=== PATIENT | male | born 1945 | race Caucasian/White ===

== ENCOUNTER 2019-10-21 08:27 | Inpatient (IN) ==
[2019-10-21] MEDS: 0.9 % Sodium Chloride 1,000 ML IVC SCH ×2 (09:21→22:33)
[2019-10-21] MEDS ORDERED: ISOVUE-370 200 ML INFUS..BTL ONE (09:31)
[2019-10-21] MEDS ORDERED: Nitroglycerin 1,000 MCG/10 ML VIAL IV ONE (09:31)
[2019-10-21] MEDS ORDERED: 0.9 % Sodium Chloride 1,000 ML ONE (09:31)
[2019-10-21] MEDS ORDERED: *HR* Heparin 10,000 UNIT/10 ML VIAL ONE (09:31)
[2019-10-21] MEDS ORDERED: Heparin 1,000 UNITS/500 mL 500 ML ONE (09:31)
[2019-10-21] MEDS ORDERED: *HR* Midazolam HCl 2 MG/2 ML VIAL ONE (09:46)
[2019-10-21] MEDS ORDERED: Acetaminophen 325 MG TABLET PO PRN (10:21)
[2019-10-21] MEDS ORDERED: Aspirin Enteric Coated 81 MG Tablet PO SCH (12:15)
[2019-10-21] MEDS ORDERED: Finasteride 5 MG TABLET PO SCH (12:15)
[2019-10-21] MEDS: Lurasidone 20 MG TABLET PO SCH (14:53)
[2019-10-21] MEDS ORDERED: CeFAZolin Syr 2,000MG/20 ML 2,000 MG/20 ML SYRINGE IVPB ONE (16:27)
[2019-10-21] MEDS ORDERED: Perflutren Lipid Microsphere 1.3 ML in 0.9 % Sodium Chloride 8.7 ML IVP ONE (16:32)
[2019-10-21] MEDS: Budesonide/Formoterol 160/4.5 1 PUFF INH IH SCH ×2 (16:45→19:47)
[2019-10-21 17:16] LABS: Basophils # 0.1 K/mcL (0.0-0.2); Basophils % 1.1 %; Eosinophils # 1.2 K/mcL (0.0-0.6); Eosinophils % 15.3 %; Hematocrit 40.6 % (37.5-50.1); Hemoglobin 13.9 g/dL (12.9-16.9); Immature Granulocytes % 0.3 % (0-4); Lymphocytes # 2.3 K/mcL (0.6-4.6); Mean Corpuscular HGB Conc 34.2 g/dL (31.6-35.5); Mean Corpuscular Hemoglobin 32.9 pg (28.0-33.3); Mean Corpuscular Volume 96.2 fL (83.0-100.0); Mean Platelet Volume 9.6 fL (9.4-12.4); Monocytes # 0.5 K/mcL (0.0-1.3); Monocytes % 6.5 %; Neutrophils # 3.8 K/mcL (1.6-8.9); Platelet Count 220 K/mcL (140-400); Red Blood Count 4.22 M/mcL (4.19-5.50); Red Cell Distribution Width 12.5 % (11.5-14.5); Segmented Neutrophils % 47.8 %; White Blood Count 7.9 K/mcL (4.3-11.1)
[2019-10-21 17:17] LABS: INR 1.1; Prothrombin Time 12.1 Seconds (9.4-12.1)
[2019-10-21 17:19] LABS: Estimated Average Glucose 108 mg/dl
[2019-10-21 17:26] LABS: BUN/Creatinine Ratio 14 (6-26); Blood Urea Nitrogen 18 mg/dL (8-23); Calcium 9.1 mg/dL (8.6-10.3); Carbon Dioxide 27 mEq/L (23-29); Chloride 111 mEq/L (98-107); Chol/HDL Ratio 7.1 (0-4.9); Cholesterol 198 mg/dL (< 200); Glucose 95 mg/dL (70-105); HDL Cholesterol 28 mg/dL (40-59); LDL Cholesterol,Calculated 121 mg/dL (0-99); Osmolality,Calculated 288 (280-300); Potassium 4.5 mEq/L (3.5-5.1); Sodium 138 mEq/L (136-145); Triglycerides 247 mg/dL (< 150); eGFR For African Americans > 60 (> 60); eGFR For Non-African Americans 54 (> 60)
[2019-10-21] MEDS: OXcarbazepine 150 MG TABLET PO SCH (22:32)
[2019-10-21] MEDS: Isosorbide MONOnitrate (24 HR) 30 MG TAB.ER.24H PO SCH (22:32)
[2019-10-21] MEDS: Finasteride 5 MG TABLET PO SCH (22:32)
[2019-10-21] MEDS: Chlorhexidine Rinse 15 ML MOUTHWASH MM SCH (22:33)
[2019-10-22 00:37] LABS: Bilirubin,Urine Negative (Negative); Blood,Urine Small (Negative); Clarity,Urine Clear (Clear); Color,Urine Yellow (Yellow); Glucose,Urine (UA) Normal (Normal); Ketones,Urine Negative (Negative); Leukocyte Esterase,Urine Negative (Negative); Nitrite,Urine Negative (Negative); Protein,Urine Negative (Neg-Trace); Specific Gravity,Urine 1.022 (1.010-1.025); Urobilinogen,Urine Normal (Normal)
[2019-10-22 00:44] LABS: Bacteria,Urine None Seen per hpf (None-Few); Hyaline Casts,Urine None Seen per lpf (None-Few); Squamous Epithelial Cell,Urine None Seen per lpf (None-Few); WBC,Urine 0-3 per hpf (0-3)
[2019-10-22] MEDS: Chlorhexidine Rinse 15 ML MOUTHWASH MM SCH (05:38)
[2019-10-22] MEDS ORDERED: Heparin 15,000 UNIT in 0.9 % Sodium Chloride 500 ML IV ONE (06:00)
[2019-10-22] MEDS ORDERED: Norepinephrine 4 MG in 0.9 % Sodium Chloride 250 ML IVC PRN (06:00)
[2019-10-22] MEDS ORDERED: Aspirin 81 MG TAB.CHEW PO ONE (06:00)
[2019-10-22] MEDS ORDERED: Dextrose 50 % in Water (Vial) 30 ML, Sodium Bicarbonate 20 MEQ, Potassium Chloride 15 M... TH ONE (06:00)
[2019-10-22] MEDS ORDERED: Insulin Human Regular 100 UNIT in 0.9 % Sodium Chloride 100 ML IV PRN (06:00)
[2019-10-22] MEDS ORDERED: Dextrose 50 % in Water (Vial) 30 ML, Sodium Bicarbonate 20 MEQ, Lidocaine 1% 5 ML, Insu... TH ONE ×3 (06:00)
[2019-10-22] MEDS ORDERED: CeFAZolin Syr 2,000MG/20 ML 2,000 MG/20 ML SYRINGE IVPB ONE (06:00)
[2019-10-22] MEDS ORDERED: NiCARdipine 2.5 MG/10 ML Syringe IVPB ONE (06:58)
[2019-10-22] MEDS ORDERED: *HR* Midazolam HCl 5 MG/5 ML VIAL IVP ONE (07:04)
[2019-10-22] MEDS ORDERED: *HR* FentaNYL (PF) 1,000 MCG/20 ML VIAL ONE (07:05)
[2019-10-22] MEDS ORDERED: *HR* Rocuronium Bromide 50 MG/5 ML VIAL ONE (07:06)
[2019-10-22] MEDS ORDERED: *HR* PHENYLEPHRINE 1,000 MCG/10 ML SYRINGE IVP ONE ×3 (07:06→10:48)
[2019-10-22] MEDS ORDERED: *HR* Etomidate 20 MG/10 ML AMPUL IVP ONE (07:10)
[2019-10-22] MEDS ORDERED: Famotidine 20 MG/2 ML VIAL ONE (07:10)
[2019-10-22] MEDS ORDERED: Tranexamic Acid 1,000 MG/10 ML VIAL ONE ×2 (07:11→10:14)
[2019-10-22] MEDS ORDERED: Protamine Sulfate 250 MG/25 ML VIAL IVP ONE (07:11)
[2019-10-22] MEDS ORDERED: Calcium Gluconate 1,000 MG/10 ML VIAL ONE (07:11)
[2019-10-22] MEDS ORDERED: Albumin Human 5% 50.0 GM/1,000 ML IV.SOLN ONE (08:09)
[2019-10-22 08:16] LABS: ABG Base Excess -2 mEq/L (-2 to 3); ABG Chloride 107 mEq/L (98-107); ABG Glucose 94 mg/dL (60-95); ABG HCO3 26 mEq/L (21-27); ABG Ionized Calcium 1.32 mmol/L (1.15-1.35); ABG Oxygen Saturation 99 % (95-98); ABG PCO2 58 mmHg (35-45); ABG PH 7.26 pH Units (7.32-7.45); ABG PO2 146 mmHg (85-104); ABG TCO2 27 mEq/L (20-26)
[2019-10-22] MEDS ORDERED: Aspirin 81 MG TAB.CHEW PO SCH (09:00)
[2019-10-22] MEDS ORDERED: EPINEPHrine 1 MG/ML VIAL ONE (09:15)
[2019-10-22 09:27] LABS: ABG Base Excess -4 mEq/L (-2 to 3); ABG Chloride 108 mEq/L (98-107); ABG Glucose 117 mg/dL (60-95); ABG HCO3 22 mEq/L (21-27); ABG Ionized Calcium 1.13 mmol/L (1.15-1.35); ABG Oxygen Saturation 100 % (95-98); ABG PCO2 43 mmHg (35-45); ABG PH 7.33 pH Units (7.32-7.45); ABG PO2 185 mmHg (85-104); ABG TCO2 24 mEq/L (20-26)
[2019-10-22] MEDS ORDERED: EPINEPHrine 1 MG in D5% in Water 250 ML IVC ONE (09:30)
[2019-10-22 09:48] LABS: ABG Base Excess 2 mEq/L (-2 to 3); ABG Chloride 98 mEq/L (98-107); ABG Glucose 181 mg/dL (60-95); ABG HCO3 27 mEq/L (21-27); ABG Ionized Calcium 0.96 mmol/L (1.15-1.35); ABG PCO2 43 mmHg (35-45); ABG PH 7.41 pH Units (7.32-7.45); ABG PO2 > 630 mmHg (85-104); ABG TCO2 28 mEq/L (20-26)
[2019-10-22 10:16] LABS: ABG Base Excess 2 mEq/L (-2 to 3); ABG Chloride 100 mEq/L (98-107); ABG Glucose 103 mg/dL (60-95); ABG HCO3 26 mEq/L (21-27); ABG Ionized Calcium 1.31 mmol/L (1.15-1.35); ABG Oxygen Saturation 100 % (95-98); ABG PCO2 40 mmHg (35-45); ABG PH 7.43 pH Units (7.32-7.45); ABG PO2 560 mmHg (85-104); ABG TCO2 28 mEq/L (20-26)
[2019-10-22] MEDS ORDERED: Albumin Human 5% 12.5 GM/250 ML IV.SOLN ONE (10:16)
[2019-10-22] MEDS ORDERED: Albumin Human 5% 25.0 GM/500 ML IV.SOLN ONE (10:35)
[2019-10-22] MEDS ORDERED: *HR* Amiodarone 150 MG/3 ML VIAL IVPB ONE (10:40)
[2019-10-22] MEDS ORDERED: Amiodarone Premix 360 MG/200 ML BAG IVC ONE (10:41)
[2019-10-22 11:14] LABS: ABG Base Excess -4 mEq/L (-2 to 3); ABG Chloride 108 mEq/L (98-107); ABG Glucose 80 mg/dL (60-95); ABG HCO3 23 mEq/L (21-27); ABG Ionized Calcium 1.22 mmol/L (1.15-1.35); ABG Oxygen Saturation 96 % (95-98); ABG PCO2 47 mmHg (35-45); ABG PO2 92 mmHg (85-104); ABG TCO2 24 mEq/L (20-26)
[2019-10-22] MEDS: Amiodarone Premix 360 MG/200 ML BAG IVC ONE ×2 (11:37→16:32)
[2019-10-22] MEDS ORDERED: Ondansetron 4 MG/2 ML VIAL IVP PRN (11:54)
[2019-10-22] MEDS ORDERED: Naloxone 0.4 MG/ML INJ IVP PRN (11:54)
[2019-10-22] MEDS ORDERED: Calcium Gluconate 1gm/50mL 1 GM/50 ML BAG IVPB PRN (11:54)
[2019-10-22] MEDS ORDERED: Insulin Regular, Human 100 UNIT/ML IV PRN (11:54)
[2019-10-22] MEDS ORDERED: *HR* Dextrose 50 % in Water (Syg) 50 ML SYRINGE IVP PRN (11:54)
[2019-10-22] MEDS ORDERED: Acetaminophen 650 MG RECTAL SUPP RC PRN (11:54)
[2019-10-22] MEDS ORDERED: Potassium Chloride 40 MEQ/200 ML BAG IVPB PRN (11:54)
[2019-10-22] MEDS ORDERED: 0.9 % Sodium Chloride w KCl 20 MEQ/1,000 ML MLS IVC SCH (12:00)
[2019-10-22] MEDS ORDERED: Norepinephrine 4 MG in 0.9 % Sodium Chloride 250 ML IVC SCH (12:00)
[2019-10-22] MEDS ORDERED: niCARdipine 20 MG in 0.9 % Sodium Chloride 192 ML IVC SCH (12:00)
[2019-10-22] MEDS ORDERED: Insulin Human Regular 100 UNIT in 0.9 % Sodium Chloride 100 ML IVC SCH (12:00)
[2019-10-22] MEDS ORDERED: Pantoprazole 40 MG VIAL IVP SCH (12:00)
[2019-10-22 12:03] LABS: ABG Base Excess -1 mEq/L (-2 to 3); ABG HCO3 23 mEq/L (21-27); ABG Oxygen Saturation 100 % (95-98); ABG PCO2 37 mmHg (35-45); ABG PH 7.41 pH Units (7.32-7.45); ABG PO2 173 mmHg (85-104); ABG TCO2 25 mEq/L (20-26); Blood Gas Modality ASSIST CONTROL; Blood Gas VT 550 cc
[2019-10-22] MEDS: Albumin Human 5% 12.5 GM/250 ML IV.SOLN IVPB PRN ×2 (12:05→17:05)
[2019-10-22] MEDS: Budesonide/Formoterol 160/4.5 1 PUFF INH IH SCH ×2 (12:05→20:41)
[2019-10-22 12:11] LABS: Basophils % 0.3 %; Immature Granulocytes % 0.6 % (0-4); Lymphocytes % 11.4 %; Red Cell Distribution Width 13.2 % (11.5-14.5)
[2019-10-22 12:13] LABS: Eosinophils # 0.4 K/mcL (0.0-0.6); Eosinophils % 3.9 %; Hematocrit 35.7 % (37.5-50.1); Hemoglobin 12.2 g/dL (12.9-16.9); Immature Platelets 2.6 % (1.1-6.1); Lymphocytes # 1.2 K/mcL (0.6-4.6); Mean Corpuscular HGB Conc 34.2 g/dL (31.6-35.5); Mean Corpuscular Hemoglobin 31.9 pg (28.0-33.3); Mean Corpuscular Volume 93.5 fL (83.0-100.0); Mean Platelet Volume 9.4 fL (9.4-12.4); Monocytes # 0.5 K/mcL (0.0-1.3); Monocytes % 4.6 %; Neutrophils # 8.6 K/mcL (1.6-8.9); Platelet Count 141 K/mcL (140-400); Red Blood Count 3.82 M/mcL (4.19-5.50); Segmented Neutrophils % 79.2 %
[2019-10-22 12:18] LABS: INR 1.4
[2019-10-22 12:20] LABS: Activated Partial Thrombo Time 33.5 Seconds (26.0-36.0)
[2019-10-22 12:24] LABS: Prothrombin Time 15.5 Seconds (9.4-12.1); White Blood Count 10.9 K/mcL (4.3-11.1)
[2019-10-22 12:26] LABS: BUN/Creatinine Ratio 13 (6-26); Blood Urea Nitrogen 15 mg/dL (8-23); Calcium 8.7 mg/dL (8.6-10.3); Carbon Dioxide 23 mEq/L (23-29); Chloride 111 mEq/L (98-107); Glucose 76 mg/dL (70-105); Magnesium 2.6 mg/dL (1.6-2.6); Osmolality,Calculated 284 (280-300); Potassium 4.1 mEq/L (3.5-5.1); Sodium 137 mEq/L (136-145); eGFR For African Americans > 60 (> 60); eGFR For Non-African Americans > 60 (> 60)
[2019-10-22] MEDS: OXcarbazepine 150 MG TABLET PO SCH ×2 (13:35→19:58)
[2019-10-22] MEDS: Lurasidone 20 MG TABLET PO SCH (13:35)
[2019-10-22] MEDS: *HR* FentaNYL (PF) 100 MCG/2 ML VIAL IVP PRN ×3 (13:41→21:55)
[2019-10-22] MEDS: Metoclopramide 10 MG/2 ML VIAL IVP SCH ×3 (13:42→23:43)
[2019-10-22] MEDS ORDERED: Tranexamic Acid 1,000 MG/10 ML VIAL IVP ONE (13:52)
[2019-10-22] MEDS ORDERED: *HR* Magnesium Sulfate 2 GM/50 ML PIGGYBACK IVPB ONE (13:52)
[2019-10-22] MEDS ORDERED: Albumin Human 25% 25 GM/100 ML IV.SOLN IV ONE (13:52)
[2019-10-22] MEDS ORDERED: Lidocaine 2% Syringe 100 MG/5 ML IV ONE (13:52)
[2019-10-22] MEDS ORDERED: Mannitol 25% vial 12.5 GM/50 ML VIAL IVP ONE (13:52)
[2019-10-22] MEDS ORDERED: *HR* Phenylephrine 10 MG/ML VIAL IVC ONE (13:52)
[2019-10-22] MEDS ORDERED: *HR* Heparin 10,000 UNIT/10 ML VIAL IV ONE (13:52)
[2019-10-22] MEDS: ceFAZolin 2,000 MG in 0.9 % Sodium Chloride 100 ML IVPB SCH ×2 (15:15→23:43)
[2019-10-22 16:46] LABS: ABG Base Excess -2 mEq/L (-2 to 3); ABG HCO3 23 mEq/L (21-27); ABG Oxygen Saturation 93 % (95-98); ABG PCO2 40 mmHg (35-45); ABG PH 7.37 pH Units (7.32-7.45); ABG PO2 70 mmHg (85-104); ABG TCO2 24 mEq/L (20-26); Blood Gas Modality CPAP/PS; Blood Gas Pressure Support 8 cm H2O
[2019-10-22] MEDS: Isosorbide MONOnitrate (24 HR) 30 MG TAB.ER.24H PO SCH (19:55)
[2019-10-22] MEDS: Finasteride 5 MG TABLET PO SCH (19:56)
[2019-10-22 20:54] LABS: ABG Base Excess -2 mEq/L (-2 to 3); ABG HCO3 23 mEq/L (21-27); ABG Oxygen Saturation 87 % (95-98); ABG PCO2 38 mmHg (35-45); ABG PH 7.39 pH Units (7.32-7.45); ABG PO2 54 mmHg (85-104); ABG TCO2 24 mEq/L (20-26)
[2019-10-22] MEDS ORDERED: Chlorhexidine Rinse 15 ML MOUTHWASH MM SCH (21:00)
[2019-10-22] MEDS ORDERED: Amiodarone Premix 360 MG/200 ML BAG IVC SCH (22:00)
[2019-10-22] MEDS: *HR* OxyCODONE/APAP 5/325 TABLET PO PRN (23:43)
[2019-10-23] MEDS: *HR* FentaNYL (PF) 100 MCG/2 ML VIAL IVP PRN (02:17)
[2019-10-23] MEDS: *HR* OxyCODONE/APAP 5/325 TABLET PO PRN ×2 (03:47→19:31)
[2019-10-23 04:10] LABS: Basophils # 0.1 K/mcL (0.0-0.2); Basophils % 0.6 %; Eosinophils # 0.1 K/mcL (0.0-0.6); Eosinophils % 0.9 %; Hematocrit 34.5 % (37.5-50.1); Hemoglobin 11.9 g/dL (12.9-16.9); Immature Granulocytes % 0.4 % (0-4); Lymphocytes # 0.9 K/mcL (0.6-4.6); Lymphocytes % 9.6 %; Mean Corpuscular HGB Conc 34.5 g/dL (31.6-35.5); Mean Corpuscular Hemoglobin 32.1 pg (28.0-33.3); Mean Platelet Volume 10.1 fL (9.4-12.4); Monocytes # 0.8 K/mcL (0.0-1.3); Monocytes % 8.8 %; Neutrophils # 7.2 K/mcL (1.6-8.9); Platelet Count 123 K/mcL (140-400); Red Blood Count 3.71 M/mcL (4.19-5.50); Red Cell Distribution Width 13.7 % (11.5-14.5); Segmented Neutrophils % 79.7 %
[2019-10-23 04:12] LABS: INR 1.2; Prothrombin Time 13.6 Seconds (9.4-12.1)
[2019-10-23 04:14] LABS: Activated Partial Thrombo Time 31.6 Seconds (26.0-36.0)
[2019-10-23 04:28] LABS: BUN/Creatinine Ratio 10 (6-26); Blood Urea Nitrogen 14 mg/dL (8-23); Calcium 8.5 mg/dL (8.6-10.3); Carbon Dioxide 21 mEq/L (23-29); Chloride 111 mEq/L (98-107); Glucose 133 mg/dL (70-105); Magnesium 1.9 mg/dL (1.6-2.6); Osmolality,Calculated 288 (280-300); Potassium 4.3 mEq/L (3.5-5.1); Sodium 138 mEq/L (136-145); eGFR For African Americans > 60 (> 60); eGFR For Non-African Americans 50 (> 60)
[2019-10-23] MEDS: Metoclopramide 10 MG/2 ML VIAL IVP SCH ×3 (05:13→17:17)
[2019-10-23] MEDS ORDERED: Amiodarone Premix 360 MG/200 ML BAG IVC SCH (06:38)
[2019-10-23] MEDS ORDERED: Insulin Regular, Human 100 UNIT/ML IV PRN (06:38)
[2019-10-23] MEDS ORDERED: Ipratropium/Albuterol Neb 3 ML IH PRN (06:38)
[2019-10-23] MEDS ORDERED: Dextrose Gel 15 GM/37.5 ML TUBE PO PRN ×2 (06:38)
[2019-10-23] MEDS ORDERED: D5% in Water 1,000 ML IVC PRN (06:38)
[2019-10-23] MEDS ORDERED: Naloxone 0.4 MG/ML INJ IVP PRN (06:38)
[2019-10-23] MEDS ORDERED: *HR* FentaNYL (PF) 100 MCG/2 ML VIAL IVP PRN (06:38)
[2019-10-23] MEDS ORDERED: Ondansetron 4 MG/2 ML VIAL IVP PRN (06:38)
[2019-10-23] MEDS ORDERED: Primidone 50 MG TABLET PO PRN (06:38)
[2019-10-23] MEDS ORDERED: Insulin Human Regular 100 UNIT in 0.9 % Sodium Chloride 100 ML IVC SCH (06:38)
[2019-10-23] MEDS ORDERED: *HR* Dextrose 50 % in Water (Syg) 50 ML SYRINGE IVP PRN (06:38)
[2019-10-23] MEDS: Budesonide/Formoterol 160/4.5 1 PUFF INH IH SCH ×2 (07:18→20:04)
[2019-10-23] MEDS ORDERED: Pantoprazole 40 MG VIAL ONE (08:00)
[2019-10-23] MEDS ORDERED: Chlorhexidine Rinse 15 ML MOUTHWASH ONE (08:00)
[2019-10-23] MEDS ORDERED: Metoclopramide 10 MG/2 ML VIAL ONE (08:00)
[2019-10-23] MEDS ORDERED: Lurasidone 20 MG TABLET PO ONE (08:00)
[2019-10-23] MEDS ORDERED: Cholecalciferol (D-3) 1,000 UNIT (25MCG) TABLET PO ONE (08:00)
[2019-10-23] MEDS ORDERED: Aspirin Enteric Coated 81 MG Tablet PO ONE (08:00)
[2019-10-23] MEDS ORDERED: OXcarbazepine 150 MG TABLET PO ONE (08:00)
[2019-10-23] MEDS ORDERED: *HR* Amiodarone Premix 360 MG/200 ML BAG IVC ONE (08:00)
[2019-10-23] MEDS ORDERED: Furosemide 20 MG/2 ML VIAL IVP ONE (08:00)
[2019-10-23] MEDS ORDERED: Furosemide 20 MG/2 ML VIAL IVP SCH (09:00)
[2019-10-23] MEDS ORDERED: Aspirin Enteric Coated 81 MG Tablet PO SCH (09:00)
[2019-10-23] MEDS: Insulin LISPRO 300 UNITS/3 ML VIAL SQ SCH ×4 (16:51→20:12)
[2019-10-23] MEDS: *HR* Heparin 5,000 UNIT/ML VIAL SQ SCH ×2 (17:17→19:47)
[2019-10-23] MEDS: Aspirin Enteric Coated 81 MG Tablet PO SCH (19:47)
[2019-10-23] MEDS: Chlorhexidine Rinse 15 ML MOUTHWASH MM SCH ×2 (19:47→20:11)
[2019-10-23] MEDS: Pantoprazole 40 MG VIAL IVP SCH (19:48)
[2019-10-23] MEDS: Lurasidone 20 MG TABLET PO SCH (19:48)
[2019-10-23] MEDS: Furosemide 20 MG/2 ML VIAL IVP SCH ×2 (19:48→20:11)
[2019-10-23] MEDS: OXcarbazepine 150 MG TABLET PO SCH ×2 (19:49→20:10)
[2019-10-23] MEDS: Cholecalciferol (D-3) 1,000 UNIT (25MCG) TABLET PO SCH (19:49)
[2019-10-23] MEDS: Finasteride 5 MG TABLET PO SCH (20:10)
[2019-10-24] MEDS: Metoclopramide 10 MG/2 ML VIAL IVP SCH ×5 (00:02→23:23)
[2019-10-24] MEDS: *HR* OxyCODONE/APAP 5/325 TABLET PO PRN ×3 (04:26→17:48)
[2019-10-24] MEDS: *HR* Heparin 5,000 UNIT/ML VIAL SQ SCH ×2 (05:24→17:49)
[2019-10-24] MEDS: Budesonide/Formoterol 160/4.5 1 PUFF INH IH SCH ×2 (07:51→20:18)
[2019-10-24] MEDS: Insulin LISPRO 300 UNITS/3 ML VIAL SQ SCH ×4 (07:55→20:43)
[2019-10-24] MEDS: Pantoprazole 40 MG VIAL IVP SCH (07:59)
[2019-10-24] MEDS: OXcarbazepine 150 MG TABLET PO SCH ×2 (08:00→20:42)
[2019-10-24] MEDS: Aspirin Enteric Coated 81 MG Tablet PO SCH (08:00)
[2019-10-24] MEDS: Cholecalciferol (D-3) 1,000 UNIT (25MCG) TABLET PO SCH (08:01)
[2019-10-24] MEDS: Lurasidone 20 MG TABLET PO SCH (08:01)
[2019-10-24] MEDS: Chlorhexidine Rinse 15 ML MOUTHWASH MM SCH ×2 (08:02→20:43)
[2019-10-24] MEDS: Furosemide 20 MG/2 ML VIAL IVP SCH ×2 (08:02→20:43)
[2019-10-24] MEDS: *HR* Amiodarone 200 MG TABLET PO SCH (10:39)
[2019-10-24 19:35] LABS: BUN/Creatinine Ratio 15 (6-26); Blood Urea Nitrogen 19 mg/dL (8-23); Calcium 8.3 mg/dL (8.6-10.3); Carbon Dioxide 26 mEq/L (23-29); Chloride 104 mEq/L (98-107); Glucose 99 mg/dL (70-105); Osmolality,Calculated 276 (280-300); Sodium 132 mEq/L (136-145); eGFR For African Americans > 60 (> 60); eGFR For Non-African Americans 56 (> 60)
[2019-10-24] MEDS: Famotidine 20 MG TABLET PO SCH (20:43)
[2019-10-24] MEDS: Finasteride 5 MG TABLET PO SCH (20:43)
[2019-10-25] MEDS: *HR* Heparin 5,000 UNIT/ML VIAL SQ SCH ×2 (05:06→17:34)
[2019-10-25] MEDS: Metoclopramide 10 MG/2 ML VIAL IVP SCH ×2 (05:06→11:48)
[2019-10-25] MEDS: Insulin LISPRO 300 UNITS/3 ML VIAL SQ SCH ×4 (07:17→20:37)
[2019-10-25] MEDS: Furosemide 20 MG/2 ML VIAL IVP SCH ×2 (07:47→20:37)
[2019-10-25] MEDS: Chlorhexidine Rinse 15 ML MOUTHWASH MM SCH ×2 (07:48→20:37)
[2019-10-25] MEDS: Aspirin Enteric Coated 81 MG Tablet PO SCH (07:48)
[2019-10-25] MEDS: Famotidine 20 MG TABLET PO SCH ×2 (07:48→20:37)
[2019-10-25] MEDS: Cholecalciferol (D-3) 1,000 UNIT (25MCG) TABLET PO SCH (07:49)
[2019-10-25] MEDS: Lurasidone 20 MG TABLET PO SCH (07:49)
[2019-10-25] MEDS: OXcarbazepine 150 MG TABLET PO SCH ×2 (07:49→20:50)
[2019-10-25] MEDS: *HR* Amiodarone 200 MG TABLET PO SCH (07:49)
[2019-10-25] MEDS: Budesonide/Formoterol 160/4.5 1 PUFF INH IH SCH ×2 (07:57→19:37)
[2019-10-25] MEDS ORDERED: *HR* Amiodarone 200 MG TABLET PO SCH (09:00)
[2019-10-25 10:02] LABS: Basophils # 0.1 K/mcL (0.0-0.2); Basophils % 0.6 %; Eosinophils # 0.5 K/mcL (0.0-0.6); Eosinophils % 4.3 %; Hematocrit 38.8 % (37.5-50.1); Hemoglobin 13.2 g/dL (12.9-16.9); Immature Granulocytes % 0.4 % (0-4); Lymphocytes # 0.9 K/mcL (0.6-4.6); Lymphocytes % 8.2 %; Mean Corpuscular Hemoglobin 31.9 pg (28.0-33.3); Mean Corpuscular Volume 93.7 fL (83.0-100.0); Mean Platelet Volume 10.3 fL (9.4-12.4); Monocytes # 0.8 K/mcL (0.0-1.3); Monocytes % 7.6 %; Neutrophils # 8.4 K/mcL (1.6-8.9); Platelet Count 153 K/mcL (140-400); Red Blood Count 4.14 M/mcL (4.19-5.50); Red Cell Distribution Width 13.6 % (11.5-14.5); Segmented Neutrophils % 78.9 %; White Blood Count 10.6 K/mcL (4.3-11.1)
[2019-10-25 10:59] LABS: BUN/Creatinine Ratio 17 (6-26); Blood Urea Nitrogen 22 mg/dL (8-23); Calcium 8.5 mg/dL (8.6-10.3); Carbon Dioxide 26 mEq/L (23-29); Chloride 103 mEq/L (98-107); Glucose 131 mg/dL (70-105); Osmolality,Calculated 287 (280-300); Potassium 3.4 mEq/L (3.5-5.1); Sodium 136 mEq/L (136-145); eGFR For African Americans > 60 (> 60); eGFR For Non-African Americans 54 (> 60)
[2019-10-25] MEDS: *HR* OxyCODONE/APAP 5/325 TABLET PO PRN (17:34)
[2019-10-25 19:19] LABS: Hematocrit 36.5 % (37.5-50.1); Hemoglobin 12.7 g/dL (12.9-16.9); Mean Corpuscular HGB Conc 34.8 g/dL (31.6-35.5); Mean Corpuscular Hemoglobin 32.6 pg (28.0-33.3); Mean Corpuscular Volume 93.8 fL (83.0-100.0); Mean Platelet Volume 10.6 fL (9.4-12.4); Platelet Count 143 K/mcL (140-400); Red Blood Count 3.89 M/mcL (4.19-5.50); Red Cell Distribution Width 13.4 % (11.5-14.5); White Blood Count 9.8 K/mcL (4.3-11.1)
[2019-10-25] MEDS: Finasteride 5 MG TABLET PO SCH (20:37)
[2019-10-26] MEDS: *HR* Heparin 5,000 UNIT/ML VIAL SQ SCH ×2 (05:00→17:43)
[2019-10-26] MEDS: Insulin LISPRO 300 UNITS/3 ML VIAL SQ SCH ×4 (07:26→20:36)
[2019-10-26] MEDS: Budesonide/Formoterol 160/4.5 1 PUFF INH IH SCH ×2 (08:01→20:14)
[2019-10-26] MEDS: *HR* Amiodarone 200 MG TABLET PO SCH (08:40)
[2019-10-26] MEDS: Aspirin Enteric Coated 81 MG Tablet PO SCH (08:40)
[2019-10-26] MEDS: Lurasidone 20 MG TABLET PO SCH (08:40)
[2019-10-26] MEDS: Famotidine 20 MG TABLET PO SCH ×2 (08:40→20:36)
[2019-10-26] MEDS: Chlorhexidine Rinse 15 ML MOUTHWASH MM SCH ×2 (08:41→20:36)
[2019-10-26] MEDS: Cholecalciferol (D-3) 1,000 UNIT (25MCG) TABLET PO SCH (08:41)
[2019-10-26] MEDS: OXcarbazepine 150 MG TABLET PO SCH ×2 (10:48→20:35)
[2019-10-26] MEDS: Finasteride 5 MG TABLET PO SCH (20:36)
[2019-10-26] MEDS: Acetaminophen 325 MG TABLET PO PRN (23:08)
[2019-10-27] MEDS: *HR* Heparin 5,000 UNIT/ML VIAL SQ SCH ×2 (05:17→17:56)
[2019-10-27] MEDS: Acetaminophen 325 MG TABLET PO PRN ×2 (05:17→20:26)
[2019-10-27] MEDS: Budesonide/Formoterol 160/4.5 1 PUFF INH IH SCH ×2 (07:56→19:33)
[2019-10-27] MEDS: Aspirin Enteric Coated 81 MG Tablet PO SCH (08:06)
[2019-10-27] MEDS: Lurasidone 20 MG TABLET PO SCH (08:06)
[2019-10-27] MEDS: Insulin LISPRO 300 UNITS/3 ML VIAL SQ SCH ×4 (08:06→20:28)
[2019-10-27] MEDS: Cholecalciferol (D-3) 1,000 UNIT (25MCG) TABLET PO SCH (08:06)
[2019-10-27] MEDS: Chlorhexidine Rinse 15 ML MOUTHWASH MM SCH ×2 (08:06→20:28)
[2019-10-27] MEDS: *HR* Amiodarone 200 MG TABLET PO SCH (08:06)
[2019-10-27] MEDS: Famotidine 20 MG TABLET PO SCH ×2 (08:06→20:25)
[2019-10-27] MEDS: OXcarbazepine 150 MG TABLET PO SCH ×2 (08:06→20:26)
[2019-10-27] MEDS: Nicotine 14 MG PATCH.TD24 TD SCH (12:18)
[2019-10-27] MEDS: Finasteride 5 MG TABLET PO SCH (20:25)
[2019-10-28] MEDS: *HR* Heparin 5,000 UNIT/ML VIAL SQ SCH (05:02)
[2019-10-28] MEDS: Budesonide/Formoterol 160/4.5 1 PUFF INH IH SCH (07:43)
[2019-10-28 07:48] VITALS: BP 140/82
[2019-10-28] MEDS: Lurasidone 20 MG TABLET PO SCH (08:17)
[2019-10-28] MEDS: Chlorhexidine Rinse 15 ML MOUTHWASH MM SCH (08:17)
[2019-10-28] MEDS: Cholecalciferol (D-3) 1,000 UNIT (25MCG) TABLET PO SCH (08:18)
[2019-10-28] MEDS: Acetaminophen 325 MG TABLET PO PRN (08:18)
[2019-10-28] MEDS: *HR* Amiodarone 200 MG TABLET PO SCH (08:18)
[2019-10-28] MEDS: Nicotine 14 MG PATCH.TD24 TD SCH (08:18)
[2019-10-28] MEDS: Famotidine 20 MG TABLET PO SCH (08:18)
[2019-10-28] MEDS: OXcarbazepine 150 MG TABLET PO SCH (08:18)
[2019-10-28] MEDS: Aspirin Enteric Coated 81 MG Tablet PO SCH (08:18)
[2019-10-28] MEDS: Insulin LISPRO 300 UNITS/3 ML VIAL SQ SCH (08:23)
== END 2019-10-28 10:28 ==
LOC: INVDIALAB 08:27 → 2NENU 10:21 → ICNU 10-22 07:58 → 2NNU 10-23 15:59
PROVIDERS: ADMIT Internal Medicine Cardiovascular Disease; ATTEND Thoracic Surgery (Cardiothoracic Vascular Surgery)

== ENCOUNTER 2020-04-26 09:14 | Observation (INO) ==
[2020-04-26 09:41] LABS: Basophils # 0.2 K/mcL (0.0-0.2); Basophils % 1.5 %; Eosinophils # 1.9 K/mcL (0.0-0.6); Hematocrit 44.4 % (37.5-50.1); Hemoglobin 15.3 g/dL (12.9-16.9); Immature Granulocytes % 0.2 % (0-4); Lymphocytes # 2.4 K/mcL (0.6-4.6); Lymphocytes % 21.8 %; Mean Corpuscular HGB Conc 34.5 g/dL (31.6-35.5); Mean Corpuscular Hemoglobin 33.1 pg (28.0-33.3); Mean Corpuscular Volume 96.1 fL (83.0-100.0); Mean Platelet Volume 9.2 fL (9.4-12.4); Monocytes # 0.6 K/mcL (0.0-1.3); Monocytes % 5.6 %; Neutrophils # 5.9 K/mcL (1.6-8.9); Platelet Count 282 K/mcL (140-400); Red Blood Count 4.62 M/mcL (4.19-5.50); Red Cell Distribution Width 13.5 % (11.5-14.5); Segmented Neutrophils % 53.9 %; White Blood Count 10.9 K/mcL (4.3-11.1)
[2020-04-26 10:03] LABS: INR 1.1; Prothrombin Time 12.2 Seconds (9.4-12.1)
[2020-04-26 10:52] LABS: Adenovirus Not Detected (Not Detect); Coronavirus 229E Not Detected (Not Detect); Coronavirus HKU1 Not Detected (Not Detect); Coronavirus NL63 Not Detected (Not Detect); Coronavirus OC43 Not Detected (Not Detect); Human Metapneumovirus Not Detected (Not Detect); Human Rhinovirus/Enterovirus Not Detected (Not Detect); Influenza A Subtype 2009 H1 Not Detected (Not Detect); Influenza B Not Detected (Not Detect); SARS-CoV-2 Not Detected (Not Detect)
[2020-04-26 10:53] LABS: Bordetella Pertussis Not Detected (Not Detect); Chlamydophila pneumoniae Not Detected (Not Detect); Mycoplasma pneumoniae Not Detected (Not Detect); Parainfluenza Virus 1 Not Detected (Not Detect); Parainfluenza Virus 2 Not Detected (Not Detect); Parainfluenza Virus 3 Not Detected (Not Detect); Parainfluenza Virus 4 Not Detected (Not Detect); Respiratory Syncytial Virus Not Detected (Not Detect)
[2020-04-26] MEDS ORDERED: 0.9 % Sodium Chloride 500 ML ONE (11:57)
[2020-04-26] MEDS ORDERED: Naloxone 0.4 MG/ML INJ IVP PRN (20:19)
[2020-04-26] MEDS ORDERED: Ondansetron 4 MG/2 ML VIAL IVP PRN (20:19)
[2020-04-26] MEDS ORDERED: Ipratropium/Albuterol Neb 3 ML IH PRN (20:21)
[2020-04-26] MEDS ORDERED: Metoprolol XL (24 HR) Succ 25 MG TAB.ER.24H PO SCH (21:00)
[2020-04-26] MEDS ORDERED: Finasteride 5 MG TABLET PO SCH (21:30)
[2020-04-26] MEDS ORDERED: Isosorbide MONOnitrate (24 HR) 30 MG TAB.ER.24H PO SCH (21:30)
[2020-04-26] MEDS: OXcarbazepine 150 MG TABLET PO SCH (22:23)
[2020-04-26] MEDS: rOPINIRole 0.25 MG TABLET PO SCH (22:23)
[2020-04-26] MEDS: Topiramate 25 MG TABLET PO SCH (22:23)
[2020-04-26] MEDS: Budesonide/Formoterol 160/4.5 1 PUFF INH IH SCH (22:31)
[2020-04-27 01:36] LABS: INR 1.2; Prothrombin Time 13.2 Seconds (9.4-12.1)
[2020-04-27 01:37] LABS: Basophils # 0.1 K/mcL (0.0-0.2); Basophils % 0.9 %; Eosinophils # 1.3 K/mcL (0.0-0.6); Eosinophils % 12.5 %; Hematocrit 39.2 % (37.5-50.1); Immature Granulocytes % 0.3 % (0-4); Lymphocytes # 1.8 K/mcL (0.6-4.6); Lymphocytes % 17.3 %; Mean Corpuscular HGB Conc 34.2 g/dL (31.6-35.5); Mean Corpuscular Hemoglobin 32.7 pg (28.0-33.3); Mean Corpuscular Volume 95.6 fL (83.0-100.0); Mean Platelet Volume 9.5 fL (9.4-12.4); Monocytes # 0.8 K/mcL (0.0-1.3); Monocytes % 7.5 %; Neutrophils # 6.5 K/mcL (1.6-8.9); Platelet Count 233 K/mcL (140-400); Red Cell Distribution Width 13.2 % (11.5-14.5); Segmented Neutrophils % 61.5 %; White Blood Count 10.6 K/mcL (4.3-11.1)
[2020-04-27 01:46] LABS: Hemoglobin 13.4 g/dL (12.9-16.9)
[2020-04-27 01:53] LABS: BUN/Creatinine Ratio 14 (6-26); Blood Urea Nitrogen 14 mg/dL (8-23); Calcium 8.8 mg/dL (8.6-10.3); Carbon Dioxide 18 mEq/L (23-29); Chloride 111 mEq/L (98-107); Glucose 92 mg/dL (70-105); Magnesium 1.8 mg/dL (1.6-2.6); Osmolality,Calculated 284 (280-300); Potassium 3.7 mEq/L (3.5-5.1); Sodium 137 mEq/L (136-145); eGFR For African Americans > 60 (> 60); eGFR For Non-African Americans > 60 (> 60)
[2020-04-27] MEDS: OXcarbazepine 150 MG TABLET PO SCH (07:52)
[2020-04-27] MEDS: rOPINIRole 0.25 MG TABLET PO SCH (07:52)
[2020-04-27] MEDS: Topiramate 25 MG TABLET PO SCH (07:52)
[2020-04-27] MEDS: Budesonide/Formoterol 160/4.5 1 PUFF INH IH SCH (08:10)
[2020-04-27] MEDS ORDERED: Lurasidone 20 MG TABLET PO SCH (09:00)
[2020-04-27] MEDS ORDERED: Aspirin Enteric Coated 81 MG Tablet PO SCH (09:00)
[2020-04-27 10:59] VITALS: BP 124/73
== END 2020-04-27 13:25 | disposition left against medical advice (07) ==
LOC: 3ANU 09:14 → RAD 09:14 → 3ANU 15:35
PROVIDERS: ADMIT Internal Medicine; ATTEND Internal Medicine

== ENCOUNTER 2020-06-22 07:01 | Inpatient (IN) ==
[2020-06-22] MEDS ORDERED: CeFAZolin Syr 2,000MG/20 ML 2,000 MG/20 ML SYRINGE IVPB ONE (07:28)
[2020-06-22] MEDS ORDERED: Ringers Solution, Lactated 1,000 ML IVC SCH (07:30)
[2020-06-22] MEDS ORDERED: Ondansetron 4 MG/2 ML VIAL IVP PRN ×2 (07:56→21:04)
[2020-06-22] MEDS ORDERED: *HR* OxyCODONE Immed Rel 5 MG TABLET PO PRN (07:56)
[2020-06-22] MEDS ORDERED: *HR* HYDROmorphone PF 0.5 MG/0.5 ML SYRINGE IVP PRN (07:56)
[2020-06-22] MEDS ORDERED: Promethazine 6.25 MG in Water for inj. (sterile) 20 ML IVPB PRN (07:56)
[2020-06-22] MEDS ORDERED: *HR* Propofol 200 MG/20 ML VIAL IVP ONE (08:08)
[2020-06-22] MEDS ORDERED: *HR* FentaNYL (PF) 100 MCG/2 ML VIAL ONE (08:08)
[2020-06-22] MEDS ORDERED: Ondansetron 4 MG/2 ML VIAL ONE (08:11)
[2020-06-22] MEDS ORDERED: Lidocaine -MPF 2% 2 ML VIAL ONE (08:11)
[2020-06-22] MEDS ORDERED: *HR* Rocuronium Bromide 50 MG/5 ML VIAL ONE ×2 (08:11→09:02)
[2020-06-22] MEDS ORDERED: Lidocaine HCL 4 ML Topical Solution (Laryng-O-Jet Kit Sterile Pak) TP ONE (08:11)
[2020-06-22] MEDS ORDERED: Dexamethasone 4 MG/ML VIAL ONE (08:11)
[2020-06-22] MEDS ORDERED: *HR* Succinylcholine 200 MG/10 ML VIAL IVP ONE (08:11)
[2020-06-22] MEDS ORDERED: *HR* PHENYLEPHRINE 1,000 MCG/10 ML SYRINGE IVP ONE (09:32)
[2020-06-22] MEDS ORDERED: Acetaminophen IV 1,000 MG/100 ML INFUS..BTL ONE (09:36)
[2020-06-22] MEDS ORDERED: *HR* Phenylephrine 10 MG/ML VIAL ONE (09:49)
[2020-06-22] MEDS ORDERED: *HR* Magnesium Sulfate 1 GM/2 ML VIAL ONE (11:31)
[2020-06-22] MEDS ORDERED: Ketorolac 30 MG/ML VIAL ONE (11:45)
[2020-06-22] MEDS ORDERED: EPHEDrine 50 MG/ML VIAL ONE (11:56)
[2020-06-22] MEDS: Topiramate 25 MG TABLET PO SCH (20:54)
[2020-06-22] MEDS: rOPINIRole 0.25 MG TABLET PO SCH (20:54)
[2020-06-22] MEDS: OXcarbazepine 150 MG TABLET PO SCH (20:54)
[2020-06-22] MEDS: Finasteride 5 MG TABLET PO SCH (20:55)
[2020-06-22] MEDS: Isosorbide MONOnitrate (24 HR) 30 MG TAB.ER.24H PO SCH (20:56)
[2020-06-22] MEDS: *HR* HYDROcodone/Acet 5/325 mg TABLET PO PRN (21:22)
[2020-06-22] MEDS: Budesonide/Formoterol 160/4.5 1 PUFF INH IH SCH (22:12)
[2020-06-23] MEDS: *HR* HYDROcodone/Acet 5/325 mg TABLET PO PRN ×4 (05:54→22:35)
[2020-06-23 07:38] LABS: Hematocrit 37.9 % (37.5-50.1); Hemoglobin 12.7 g/dL (12.9-16.9); Mean Corpuscular HGB Conc 33.5 g/dL (31.6-35.5); Mean Corpuscular Hemoglobin 33.9 pg (28.0-33.3); Mean Corpuscular Volume 101.1 fL (83.0-100.0); Mean Platelet Volume 9.9 fL (9.4-12.4); Platelet Count 224 K/mcL (140-400); Red Blood Count 3.75 M/mcL (4.19-5.50); Red Cell Distribution Width 13.2 % (11.5-14.5); White Blood Count 13.4 K/mcL (4.3-11.1)
[2020-06-23 07:55] LABS: % Iron Saturation 23 % (20-55); BUN/Creatinine Ratio 16 (6-26); Blood Urea Nitrogen 19 mg/dL (8-23); Calcium 8.8 mg/dL (8.6-10.3); Carbon Dioxide 24 mEq/L (23-29); Chloride 104 mEq/L (98-107); Glucose 101 mg/dL (70-105); Iron 54 mcg/dL (65-175); Magnesium 2.2 mg/dL (1.6-2.6); Osmolality,Calculated 282 (280-300); Potassium 4.3 mEq/L (3.5-5.1); Sodium 135 mEq/L (136-145); Transferrin 171 mg/dL (203-362); eGFR For African Americans > 60 (> 60); eGFR For Non-African Americans 59 (> 60)
[2020-06-23] MEDS: Budesonide/Formoterol 160/4.5 1 PUFF INH IH SCH ×2 (08:11→20:39)
[2020-06-23] MEDS: Topiramate 25 MG TABLET PO SCH ×2 (08:42→22:00)
[2020-06-23] MEDS: Lurasidone 20 MG TABLET PO SCH (08:42)
[2020-06-23] MEDS: rOPINIRole 0.25 MG TABLET PO SCH ×2 (08:42→22:00)
[2020-06-23] MEDS: OXcarbazepine 150 MG TABLET PO SCH ×2 (08:42→22:00)
[2020-06-23] MEDS: Aspirin Enteric Coated 81 MG Tablet PO SCH (08:42)
[2020-06-23] MEDS ORDERED: Iron Sucrose Complex 400 MG in 0.9 % Sodium Chloride 250 ML IVPB ONE (09:00)
[2020-06-23] MEDS: Finasteride 5 MG TABLET PO SCH (22:00)
[2020-06-23] MEDS: Isosorbide MONOnitrate (24 HR) 30 MG TAB.ER.24H PO SCH (22:00)
[2020-06-24] MEDS: *HR* HYDROcodone/Acet 5/325 mg TABLET PO PRN ×4 (04:20→20:51)
[2020-06-24] MEDS: Budesonide/Formoterol 160/4.5 1 PUFF INH IH SCH ×2 (08:01→22:35)
[2020-06-24] MEDS: Aspirin Enteric Coated 81 MG Tablet PO SCH (08:07)
[2020-06-24] MEDS: OXcarbazepine 150 MG TABLET PO SCH ×2 (08:07→20:50)
[2020-06-24] MEDS: Lurasidone 20 MG TABLET PO SCH (08:08)
[2020-06-24] MEDS: Topiramate 25 MG TABLET PO SCH ×2 (08:08→20:52)
[2020-06-24] MEDS: rOPINIRole 0.25 MG TABLET PO SCH ×2 (08:08→20:51)
[2020-06-24] MEDS: Finasteride 5 MG TABLET PO SCH (20:52)
[2020-06-24] MEDS: Isosorbide MONOnitrate (24 HR) 30 MG TAB.ER.24H PO SCH (20:52)
[2020-06-25] MEDS: *HR* HYDROcodone/Acet 5/325 mg TABLET PO PRN ×4 (03:58→20:49)
[2020-06-25] MEDS: Lurasidone 20 MG TABLET PO SCH (07:32)
[2020-06-25] MEDS: Topiramate 25 MG TABLET PO SCH ×2 (07:32→20:12)
[2020-06-25] MEDS: OXcarbazepine 150 MG TABLET PO SCH ×2 (07:32→20:11)
[2020-06-25] MEDS: rOPINIRole 0.25 MG TABLET PO SCH ×2 (07:32→20:11)
[2020-06-25] MEDS: Aspirin Enteric Coated 81 MG Tablet PO SCH (07:32)
[2020-06-25] MEDS: Budesonide/Formoterol 160/4.5 1 PUFF INH IH SCH ×2 (07:49→22:17)
[2020-06-25] MEDS: Finasteride 5 MG TABLET PO SCH (20:12)
[2020-06-25] MEDS: Isosorbide MONOnitrate (24 HR) 30 MG TAB.ER.24H PO SCH (20:12)
[2020-06-26] MEDS: rOPINIRole 0.25 MG TABLET PO SCH ×2 (07:35→19:53)
[2020-06-26] MEDS: Aspirin Enteric Coated 81 MG Tablet PO SCH (07:35)
[2020-06-26] MEDS: Lurasidone 20 MG TABLET PO SCH (07:35)
[2020-06-26] MEDS: Topiramate 25 MG TABLET PO SCH ×2 (07:35→19:53)
[2020-06-26] MEDS: *HR* HYDROcodone/Acet 5/325 mg TABLET PO PRN ×2 (07:35→11:49)
[2020-06-26] MEDS: OXcarbazepine 150 MG TABLET PO SCH ×2 (07:35→19:53)
[2020-06-26] MEDS: Budesonide/Formoterol 160/4.5 1 PUFF INH IH SCH ×2 (07:54→22:24)
[2020-06-26] MEDS: Finasteride 5 MG TABLET PO SCH (19:53)
[2020-06-26] MEDS: Isosorbide MONOnitrate (24 HR) 30 MG TAB.ER.24H PO SCH (19:53)
[2020-06-27] MEDS: *HR* HYDROcodone/Acet 5/325 mg TABLET PO PRN ×2 (07:05→21:28)
[2020-06-27] MEDS: Aspirin Enteric Coated 81 MG Tablet PO SCH (07:05)
[2020-06-27] MEDS: Lurasidone 20 MG TABLET PO SCH (07:05)
[2020-06-27] MEDS: rOPINIRole 0.25 MG TABLET PO SCH ×2 (07:05→21:28)
[2020-06-27] MEDS: Topiramate 25 MG TABLET PO SCH ×2 (07:05→21:28)
[2020-06-27] MEDS: OXcarbazepine 150 MG TABLET PO SCH ×2 (07:06→21:28)
[2020-06-27] MEDS: Budesonide/Formoterol 160/4.5 1 PUFF INH IH SCH ×2 (11:36→22:09)
[2020-06-27] MEDS: Isosorbide MONOnitrate (24 HR) 30 MG TAB.ER.24H PO SCH (21:28)
[2020-06-27] MEDS: Finasteride 5 MG TABLET PO SCH (21:28)
[2020-06-28 07:15] VITALS: BP 106/72
[2020-06-28] MEDS: Budesonide/Formoterol 160/4.5 1 PUFF INH IH SCH (08:29)
[2020-06-28] MEDS: Topiramate 25 MG TABLET PO SCH (08:44)
[2020-06-28] MEDS: Aspirin Enteric Coated 81 MG Tablet PO SCH (08:45)
[2020-06-28] MEDS: rOPINIRole 0.25 MG TABLET PO SCH (08:45)
[2020-06-28] MEDS: OXcarbazepine 150 MG TABLET PO SCH (08:45)
[2020-06-28] MEDS: Lurasidone 20 MG TABLET PO SCH (08:45)
== END 2020-06-28 09:57 | disposition home or self-care (01) | DRG 165 ==
LOC: SAMDAY 07:01 → 2NNU 13:29
PROVIDERS: ADMIT Thoracic Surgery (Cardiothoracic Vascular Surgery); ATTEND Thoracic Surgery (Cardiothoracic Vascular Surgery)